=== PATIENT | female | born 1945 ===

== ENCOUNTER 2019-04-14 08:42 | Day surgery (SDC) | payer MEDICARE, BC ==
[~2019-04-14 08:42] MED LIST: Acetaminophen TAB* 325 MG PO PRN; Buffered Lidocaine 1% SYRIN* 1 ML/SYRINGE INTRADERM ONE
[2019-04-14] MEDS ORDERED: Midazolam* 1 MG/ML 5 ML VIAL (5 MG) ONE (10:43)
--- NOTE | 2019-04-14 11:54 | OP ---
DATE OF OPERATION: 04/14/2019. DATE OF : 1945. SURGEON: Scot Barnard M.D. PREOPERATIVE DIAGNOSIS: Cataract left eye. POSTOPERATIVE DIAGNOSIS: Cataract left eye. OPERATIVE PROCEDURE: Extracapsular cataract extraction with intraocular lens implant left eye. PROCEDURE: The patient was brought to the operating room after being given 1/2% Alcaine with epineph rine drops in the preoperative area. The eye was prepped and draped in the usual sterile fashion. S terile drape and eyelid speculum were placed. Again, topical 1/2% Alcaine with epinephrine was given . A paracentesis incision was made at the 3 o'clock position with the No.75 blade. Clear cornea inc ision 2.2 x 2.2-mm was created at the 6 o'clock position starting at the anterior limbus using the 2. 2-mm keratome. The anterior chamber was irrigated with 0.4 mL of 1% non-preservative intracameral li docaine and filled with DisCoVisc. A capsulorrhexis was completed using the cystotome and the Utrata forceps. Hydrodissection was performed with balanced salt solution. The lens nucleus was removed wi th the Phacoemulsification handpiece without incident. Cortex was removed with the irrigation-aspira tion handpiece. The capsular bag was re-inflated using DisCoVisc and an [id number] implant was insert ed with the shooter. The irrigation-aspiration handpiece was used to remove all residual DisCoVisc. The eye was refilled with balanced salt solution and the wound checked and found to be watertight. Topical Maxitrol drops were given. [id number] #: [id number]
[2019-04-14 12:27] VITALS: BP 159/72
[2019-04-14] MEDS ORDERED: acetaZOLAMIDE TAB* 250 MG ONE (14:15)
[2019-04-14] MEDS ORDERED: Lidocaine 1% MPF ** 5 ML VIAL ONE (14:15)
[2019-04-14] MEDS ORDERED: Povidone Iodine 5% OPTH* 30 ML BTL ONE (14:15)
[2019-04-14] MEDS ORDERED: Ketorolac 0.5% OPHTH (NF) 0.5 % 5 ML BTL ONE (14:15)
[2019-04-14] MEDS ORDERED: Proparacaine 0.5% OPHTH.SOL* 15 ML BTL ONE (14:15)
[2019-04-14] MEDS ORDERED: Neomycin/Polymy/Dex OPTH.SUSP* MAXITROL 0.1% 5 ML ONE (14:15)
[2019-04-14] MEDS ORDERED: Cyclopentolate 1% OPTH.SOL* 2 ML BTL ONE (14:15)
[2019-04-14] MEDS ORDERED: Phenylephrine OPHTH SOL 2.5%* 2 ML ONE (14:15)
[2019-04-14] MEDS ORDERED: Lidocaine 2% w/ EPI 1:200,000* 20 ML VIAL ONE (14:15)
== END 2019-04-14 11:40 | disposition home or self-care (01) ==
LOC: OREAST 08:42
PROVIDERS: ATTEND Specialist
DX: H25.812 Combined forms of age-related cataract, left eye (principal); M81.0 Age-related osteoporosis without current pathological fracture; G47.33 Obstructive sleep apnea (adult) (pediatric); K51.90 Ulcerative colitis, unspecified, without complications; R73.01 Impaired fasting glucose; C85.90 Non-Hodgkin lymphoma, unspecified, unspecified site; E03.8 Other specified hypothyroidism; Z85.3 Personal history of malignant neoplasm of breast; Z85.850 Personal history of malignant neoplasm of thyroid
CPT/HCPCS: A9270-GY; J2250; V2632